=== PATIENT | male | born 2000 | race Caucasian/White ===

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

== ENCOUNTER 2022-03-22 13:43 | Emergency (ER) | payer BC, OTHER ==
[~2022-03-22] VITALS: Ht 177.8 cm; Wt 54.9 kg
[2022-03-22 13:53] VITALS: BP 128/62
--- NOTE | 2022-03-22 14:04 | NUR ---
PT AMBULATED TO BED 8
[2022-03-22] MEDS ORDERED: KETOROLAC 15 MG/ML VIAL IVP ONE (14:15)
--- NOTE | 2022-03-22 14:19 | NUR ---
PT REFUSING IV . DR GARCIA AT BEDSIDE SPEAKING WITH PT
[2022-03-22] MEDS ORDERED: KETOROLAC 30 MG/ML VIAL IM ONE (14:25)
[2022-03-22 14:31] LABS: BASOPHILS % (AUTO) 0.5 % (0.0-2.0); EOSINOPHILS % (AUTO) 0.4 % (0.0-4.0); HEMATOCRIT 47.8 % (36-52); HEMOGLOBIN 15.8 g/dL (12.0-18.0); LYMPHOCYTES # (AUTO) 1.6 K/uL (2.0-11.5); LYMPHOCYTES % (AUTO) 20.8 % (20.5-51.1); MEAN CORPUSCULAR HEMOGLOBIN 28 pg (27-31); MEAN CORPUSCULAR HGB CONC 33 g/dL (33-37); MEAN CORPUSCULAR VOLUME 83.9 fL (80-94); MONOCYTES # (AUTO) 0.3 K/uL (0.8-1.0); MONOCYTES % (AUTO) 4.7 % (1.7-9.3); NEUTROPHILS # (AUTO) 5.5 K/uL (1.8-7.7); NEUTROPHILS % (AUTO) 73.6 % (42.2-75.2); PLATELET COUNT (AUTO) 190 K/uL (140-450); RED BLOOD CELL COUNT(AUTO) 5.69 MIL/uL (4.20-6.10); RED CELL DISTRIBUTION WIDTH 13.9 % (11.6-13.7); WHITE BLOOD COUNT (AUTO) 7.5 K/uL (4.5-11.0)
--- NOTE | 2022-03-22 14:40 | NUR ---
85YR OLD FEMALE BIB EMS C/O ALOC /WEAKNESS. PT IS FROM [facility] [place]. EMS SENT OUT FOR PT BEING MORE ALOC THAN NORMAL. PT IS A&OX1. BED BOUND . SKIN INTACT WARM AND DRY. HOB ELEVATED AND SIDE RAILS UP . BED AT LOWEST LEVEL.
[2022-03-22 14:46] LABS: ALBUMIN 4.9 g/dL (3.4-5.0); ANION GAP 16.4 (8-16); CARBON DIOXIDE 22.1 mmol/L (21-32); POTASSIUM 3.5 mmol/L (3.5-5.1); TOTAL BILIRUBIN 0.8 mg/dL (0.0-1.0)
== END 2022-03-22 15:27 | disposition home or self-care (01) ==
LOC: MED 13:43
DX: R06.02 Shortness of breath (principal); R10.9 Unspecified abdominal pain; F12.90 Cannabis use, unspecified, uncomplicated; Z79.899 Other long term (current) drug therapy
CPT/HCPCS: 36415; 71045; 80053; 83690; 85025; 93005; 99285; J1885